=== PATIENT | male | born 1980 | race Asian ===

== ENCOUNTER 2019-05-24 20:19 | Emergency (ER) | payer MEDICAID ==
[~2019-05-24] VITALS: Ht 175.3 cm; Wt 89.0 kg
[2019-05-24 20:46] VITALS: BP 155/109
[2019-05-25 01:57] LABS: CHLORIDE 104 mEq/L (98-107); PROTHROMBIN TIME 10.4 sec (9.6-11.0)
[2019-05-25 02:09] LABS: BASOPHILS % 0.4 % (0.0-2.0); EOSINOPHILS % 1.4 % (0.0-5.0); HEMOGLOBIN. 14.8 g/dL (14.0-18.0); LYMPHOCYTES % 32.3 % (20.0-50.0); MEAN CORPUSCULAR HEMOGLOBIN 29.7 pg (28.0-32.0); MEAN CORPUSCULAR VOLUME 86.5 fL (80.0-94.0); MEAN PLATELET VOLUME 8.1 fl (7.4-10.4); NEUTROPHILS % 56.9 % (40.0-76.0); PLATELET 271 x1000/uL (130-400); RED BLOOD CELL COUNT 4.97 mill/uL (4.7-6.1); RED CELL DISTRIBUTION WIDTH 13.4 % (11.6-14.6)
[2019-05-25 03:40] LABS: CLARITY URINE CLEAR (CLEAR); COLOR URINE YELLOW (YELLOW); KETONES URINE NEGATIVE (NEGATIVE); LEUKOCYTE ESTERASE URINE NEGATIVE (NEGATIVE); NITRITE URINE NEGATIVE (NEGATIVE); OCCULT BLOOD URINE NEGATIVE (NEGATIVE); PH URINE 5.5 (4.5-8.0); PROTEIN URINE NEGATIVE (NEGATIVE); SPECIFIC GRAVITY URINE 1.011 (1.005-1.030); UROBILINOGEN URINE 0.2 E.U./dL (0.2-1.0)
== END 2019-05-25 04:29 | disposition home or self-care (01) ==
LOC: ER 20:19
DX: R00.2 Palpitations (principal); R53.1 Weakness; F41.9 Anxiety disorder, unspecified
CPT/HCPCS: 36415; 71045; 80053; 81003; 83880; 84484; 85025; 87804; 93005; 99285

== ENCOUNTER 2019-11-24 12:17 | Inpatient (IN) | payer BC, MEDICAID ==
[~2019-11-24] VITALS: Ht 180.3 cm; Wt 95.3 kg
[2019-11-24] MEDS ORDERED: ONDANSETRON HCL 4MG/2ML INJ IV STA (13:14)
[2019-11-24] MEDS ORDERED: KETOROLAC 30MG/ML VIAL IV STA (13:14)
[2019-11-24] MEDS ORDERED: SODIUM CHLORIDE 0.9% 1,000 ML IV ONE (13:14)
[2019-11-24] MEDS ORDERED: MORPHINE SULFATE 4 MG/ML CPJ (NOT FOR IM USE) IV STA (13:14)
[2019-11-24 13:42] LABS: BASOPHILS % 0.7 % (0.0-2.0); EOSINOPHILS % 2.4 % (0.0-5.0); HEMOGLOBIN. 13.3 g/dL (14.0-18.0); LYMPHOCYTES % 15.2 % (20.0-50.0); MEAN CORPUSCULAR HEMOGLOBIN 29.3 pg (28.0-32.0); MEAN CORPUSCULAR VOLUME 85.8 fL (80.0-94.0); MEAN PLATELET VOLUME 8.7 fl (7.4-10.4); MONOCYTES % 4.4 % (2.0-8.0); NEUTROPHILS % 77.3 % (40.0-76.0); PLATELET 254 x1000/uL (130-400); RED BLOOD CELL COUNT 4.55 mill/uL (4.7-6.1)
[2019-11-24 13:49] LABS: CHLORIDE 106 mEq/L (98-107)
[2019-11-24 14:45] LABS: CLARITY URINE CLEAR (CLEAR); COLOR URINE YELLOW (YELLOW); KETONES URINE NEGATIVE (NEGATIVE); LEUKOCYTE ESTERASE URINE NEGATIVE (NEGATIVE); NITRITE URINE NEGATIVE (NEGATIVE); OCCULT BLOOD URINE NEGATIVE (NEGATIVE); PROTEIN URINE NEGATIVE (NEGATIVE); SPECIFIC GRAVITY URINE 1.008 (1.005-1.030); UROBILINOGEN URINE 0.2 E.U./dL (0.2-1.0)
[2019-11-24] MEDS ORDERED: MORPHINE SULFATE 2 MG/ML CPJ (NOT FOR IM USE) IV PRN (16:15)
[2019-11-24] MEDS: DEXAMETHASONE 4MG/ML 1ML VIAL IV SCH ×2 (18:00→23:58)
[2019-11-24 18:34] LABS: PROTHROMBIN TIME 10.7 sec (9.6-11.0)
[2019-11-24 21:00] VITALS: BP 166/98
[2019-11-24] MEDS ORDERED: DEXT 5%/0.45% NACL 1000ML 1,000 ML IV SCH (22:00)
[2019-11-24] MEDS: AMLODIPINE 5MG TABLET PO SCH (22:57)
[2019-11-25] VITALS: BP 159/96
[2019-11-25 04:00] VITALS: BP 148/84
[2019-11-25] MEDS: DEXAMETHASONE 4MG/ML 1ML VIAL IV SCH ×3 (05:27→17:16)
[2019-11-25] MEDS ORDERED: THROMBIN (BOVINE) 5000 UNITS/VIAL TOP ONE (06:41)
[2019-11-25] MEDS ORDERED: BACITRACIN 50,000 UNITS/VIAL ONE (06:42)
[2019-11-25] MEDS ORDERED: LIDOCAINE HCL/EPINEPHRINE 1%-EPI 1:100,000 20 ML VIAL ONE (06:42)
[2019-11-25] MEDS ORDERED: PROPOFOL 200MG/20ML VIAL IV ONE (07:37)
[2019-11-25] MEDS ORDERED: ROCURONIUM BROMIDE 10MG/ML VIAL 5ML IV ONE (07:37)
[2019-11-25] MEDS ORDERED: DEXAMETHASONE 4MG/ML 1ML VIAL ONE (07:39)
[2019-11-25] MEDS ORDERED: DEXT 5%/LACTATED RINGERS 1,000 ML IV SCH (07:45)
[2019-11-25] MEDS ORDERED: ONDANSETRON HCL 4MG/2ML INJ IV PRN ×2 (07:45→10:00)
[2019-11-25] MEDS ORDERED: HYDROCODONE/ACETAMINOPHEN 5/325MG TABLET PO PRN (07:45)
[2019-11-25] MEDS ORDERED: MORPHINE SULFATE 4 MG/ML CPJ (NOT FOR IM USE) IV PRN (07:45)
[2019-11-25] MEDS ORDERED: HYDROMORPHONE HCL/PF 2MG/ML (OR) ONE (07:51)
[2019-11-25] MEDS ORDERED: IPRATROPIUM/ALBUTEROL 0.5-3(2.5)MG/3ML NEB HHN PRN (09:00)
[2019-11-25] MEDS ORDERED: BISACODYL 10MG SUPP PR PRN (09:00)
[2019-11-25] MEDS ORDERED: CLONIDINE 0.1MG TABLET PO PRN (09:00)
[2019-11-25] MEDS ORDERED: ACETAMINOPHEN 650MG SUPP PR PRN (09:00)
[2019-11-25] MEDS ORDERED: ACETAMINOPHEN 325MG TABLET PO PRN (09:00)
[2019-11-25] MEDS ORDERED: NEOSTIGMINE METHYLSULFATE 1MG/ML 10 ML VIAL ONE (09:28)
[2019-11-25] MEDS ORDERED: GLYCOPYRROLATE 0.2 MG/ML 2ML VIAL ONE (09:28)
[2019-11-25] MEDS ORDERED: ENALAPRIL 0.625 MG in DEXTROSE 5% WATER 49.5 ML IV PRN (09:30)
[2019-11-25] MEDS ORDERED: ENALAPRIL 1.25MG/ML VIAL 1ML IV PRN (09:30)
[2019-11-25] MEDS ORDERED: NALOXONE HCL 0.4 MG/ML 1ML VIAL ONE (09:45)
[2019-11-25] MEDS ORDERED: LABETALOL 5MG/ML SYR 20 MG/4 ML SYRINGE IV PRN (10:00)
[2019-11-25] MEDS ORDERED: HYDROMORPHONE HCL/PF 2MG/ML CPJ IV PRN (10:00)
[2019-11-25] MEDS ORDERED: MEPERIDINE HCL/PF 25MG/ML CPJ IV PRN (10:00)
[2019-11-25] MEDS ORDERED: ONDANSETRON INJ IV PRN (10:15)
[2019-11-25] MEDS ORDERED: NALOXONE INJ IV PRN (10:15)
[2019-11-25] MEDS ORDERED: DIPHENHYDRAMINE INJ IV PRN (10:15)
[2019-11-25] MEDS ORDERED: HYDROMORPHONE PCA 10MG/50ML IV PRN (10:15)
[2019-11-25 12:00] VITALS: BP 129/75
[2019-11-25] MEDS: AMLODIPINE 5MG TABLET PO SCH (12:12)
[2019-11-25] MEDS ORDERED: CEFAZOLIN SODIUM 1000MG/VIAL IV SCH (14:00)
[2019-11-25] MEDS: CEFAZOLIN 1000MG PREMIX 50 ML IV SCH ×2 (14:23→21:56)
[2019-11-25 16:00] VITALS: BP 116/63
[2019-11-25 16:23] LABS: HEMATOCRIT. 37.3 % (42.0-52.0); HEMOGLOBIN. 12.5 g/dL (14.0-18.0); MEAN CORPUSCULAR HEMOGLOBIN 29.2 pg (28.0-32.0); PLATELET 254 x1000/uL (130-400); RED BLOOD CELL COUNT 4.29 mill/uL (4.7-6.1); RED CELL DISTRIBUTION WIDTH 13.4 % (11.6-14.6)
[2019-11-25 16:40] LABS: CHLORIDE 104 mEq/L (98-107)
[2019-11-25 16:49] LABS: LDL CHOLESTEROL 119 mg/dL (5-100)
[2019-11-25 16:51] LABS: HDL CHOLESTEROL 38 mg/dL (40-59)
[2019-11-25 16:52] LABS: T4 FREE 0.88 ng/dL (0.76-1.46)
[2019-11-25 18:39] LABS: PLATELET ESTIMATE NORMAL
[2019-11-25 20:00] VITALS: BP 117/61
[2019-11-26] VITALS: BP 113/59
[2019-11-26] MEDS: DEXAMETHASONE 4MG/ML 1ML VIAL IV SCH ×4 (00:31→17:30)
[2019-11-26 04:00] VITALS: BP 124/76
[2019-11-26] MEDS: CEFAZOLIN 1000MG PREMIX 50 ML IV SCH ×2 (06:10→13:13)
[2019-11-26 08:00] VITALS: BP 129/80
[2019-11-26] MEDS: AMLODIPINE 5MG TABLET PO SCH (09:48)
[2019-11-26 12:00] VITALS: BP 130/75
[2019-11-26] MEDS ORDERED: OXYCODONE HCL/ACETAMINOPHEN 5/325MG TABLET PO PRN (12:15)
[2019-11-26] MEDS ORDERED: WATER IV PRN ×4 (15:15)
[2019-11-26] MEDS ORDERED: ENALAPRIL IV PRN ×4 (15:15)
[2019-11-26] MEDS ORDERED: DEXTROSE 5% IV PRN ×4 (15:15)
[2019-11-26 16:00] VITALS: BP 131/85
[2019-11-26 20:00] VITALS: BP 136/90
[2019-11-27] MEDS: DEXAMETHASONE 4MG/ML 1ML VIAL IV SCH ×3 (01:19→12:25)
[2019-11-27 04:00] VITALS: BP 130/80
[2019-11-27 07:16] LABS: HEMATOCRIT. 36.6 % (42.0-52.0); HEMOGLOBIN. 12.2 g/dL (14.0-18.0); MEAN CORPUSCULAR HEMOGLOBIN 28.8 pg (28.0-32.0); MEAN CORPUSCULAR VOLUME 86.6 fL (80.0-94.0); PLATELET 264 x1000/uL (130-400); RED BLOOD CELL COUNT 4.23 mill/uL (4.7-6.1); RED CELL DISTRIBUTION WIDTH 13.5 % (11.6-14.6)
[2019-11-27 07:38] LABS: CHLORIDE 104 mEq/L (98-107)
[2019-11-27 08:00] VITALS: BP 134/87
[2019-11-27] MEDS: AMLODIPINE 5MG TABLET PO SCH (09:37)
[2019-11-27 12:00] VITALS: BP 136/81
[2019-11-27 14:27] LABS: PLATELET ESTIMATE NORMAL
[2019-11-27 14:49] VITALS: BP_SYST 126; BP_SYST 136; BP_DIAS 76; BP_DIAS 81
[2019-11-27 16:00] VITALS: BP 126/76
== END 2019-11-27 16:55 | disposition home health service (06) | DRG 519 ==
LOC: ER 12:17 → 8WST 17:10 → EDBEDREQSVC 17:13 → EDBEDREQ 17:13 → EDBEDREQTM 17:13 → ENRESERV 18:56 → 6EST 11-25 11:17
PROVIDERS: ADMIT Internal Medicine; ATTEND Internal Medicine
PROC: 01NB0ZZ Release Lumbar Nerve, Open Approach (ICD-10-PCS; principal; 2019-11-25)
PROC: 4A11X4Z Monitoring of Peripheral Nervous Electrical Activity, External Approach (ICD-10-PCS; 2019-11-25)
PROC: 01NR0ZZ Release Sacral Nerve, Open Approach (ICD-10-PCS; 2019-11-25)
PROC: 0SB40ZZ Excision of Lumbosacral Disc, Open Approach (ICD-10-PCS; 2019-11-25)
DX: M48.07 Spinal stenosis, lumbosacral region (principal); G82.20 Paraplegia, unspecified; G89.29 Other chronic pain; M51.27 Other intervertebral disc displacement, lumbosacral region; D64.9 Anemia, unspecified; M51.17 Intervertebral disc disorders with radiculopathy, lumbosacral region; Z20.828 Contact with and (suspected) exposure to other viral communicable diseases; D72.829 Elevated white blood cell count, unspecified
CPT/HCPCS: 36415; 71045; 72100; 72148; 76000; 80048; 80053; 80061; 81003; 84439; 84443; 85025; 86850; 86900; 87426; 88304; 88311; 93005; 95863; 95925; 95926; 95928; 95929; 95940; 97116; 97162; 97166; 99291; J0690; J1100; J1170; J1885; J2270; J2310; J2405; J2704; J2710; J3490; J7030; J7121